=== PATIENT | female | born 1970 | race Two or more races ===

== ENCOUNTER 2022-05-03 08:32 | Emergency (ER) | payer MEDICAID ==
[~2022-05-03] VITALS: Ht 154.9 cm; Wt 61.4 kg
[~2022-05-03 08:32] MED LIST: AZIT500T66 PO; GUAISYP6 PO
[2022-05-03 08:51] VITALS: BP 134/85
[2022-05-03 09:33] LABS: Urine Bacteria NONE SEEN /hpf (None Seen); Urine Blood Negative /uL (Negative); Urine Specific Gravity 1.005 (1.001-1.035); Urine WBC <1 /hpf (0 - 5)
[2022-05-03 09:39] LABS: Basophils # (auto) 0 10 ^3/uL (0-0.2); Basophils % (auto) 1.1 % (0.0-2.0); Eosinophils # (auto) 0.2 10 ^3/uL (0-0.8); Eosinophils % (auto) 4.1 % (0.0-7.0); Hematocrit 45.6 % (36.0-46.0); Hemoglobin 15.5 g/dL (12.2-16.2); Lymphocytes # (auto) 1.6 10 ^3/uL (0.4-5.4); Mean Corpuscular Hemoglobin 30.3 pg (28.0-32.0); Mean Corpuscular Volume 89.1 fL (80.0-100.0); Monocytes # (auto) 0.3 10 ^3/uL (0-1.3); Monocytes % (auto) 6.2 % (0.0-12.0); Neutrophils # (auto) 2.4 10 ^3/uL (1.6-8.6); Neutrophils % (auto) 52.6 % (37.0-80.0); Red Blood Cells 5.12 10^6/uL (4.0-5.20); Red Cell Distribution Width 14.3 % (11.8-14.3); White Blood Cell 4.5 10^3/uL (4.4-10.8)
[2022-05-03 09:55] LABS: Albumin 4.3 g/dL (3.4-5.0); Calcium 9.4 mg/dL (8.5-10.1); Potassium 4.2 mmol/L (3.5-5.1)
[2022-05-03 09:59] LABS: BUN/Creatinine Ratio 15.9; Bilirubin, Total 0.4 mg/dL (0.2-1.0); Total Protein 8.3 g/dL (6.4-8.2)
[2022-05-03] MEDS ORDERED: IBU600T PO (11:00)
== END 2022-05-03 11:09 | disposition home or self-care (01) ==
LOC: ER 08:32
DX: R07.89 Other chest pain (principal); R09.1 Pleurisy; J45.909 Unspecified asthma, uncomplicated
CPT/HCPCS: 36415; 71045; 80053; 81001; 84484; 85025; 85379; 93005

== ENCOUNTER 2023-04-28 10:11 | Emergency (ER) | payer MEDICAID ==
[~2023-04-28] VITALS: Ht 162.6 cm; Wt 64.3 kg
[~2023-04-28 10:11] MED LIST changes: +IBU600T PO
[2023-04-28 11:13] VITALS: BP 126/72; PULSE 75; RESP 17; TEMP 98.3; O2SAT 97
[2023-04-28] MEDS ORDERED: PROCHLORPERAZINE EDISYLATE 5 MG/ML 2ML VIAL IM ONE (11:45)
[2023-04-28] MEDS ORDERED: HYDROcodone-ACET 5/325MG TAB PO ONE (11:45)
[2023-04-28] MEDS ORDERED: KETOROLAC TROMETH 60MG/2ML VIAL IM ONE (11:45)
[2023-04-28] MEDS ORDERED: IBUP1TAB5 PO (11:47)
[2023-04-28] MEDS ORDERED: FLUT1SPR5 (11:47)
[2023-04-28] MEDS ORDERED: AUG875T PO (11:47)
[2023-04-28] MEDS ORDERED: PRED20TA2 PO (11:47)
[2023-04-28] MEDS ORDERED: ZOFR4T PO (11:47)
== END 2023-04-28 11:42 | disposition home or self-care (01) ==
LOC: ER 10:11
DX: J01.90 Acute sinusitis, unspecified (principal); R51.9 Headache, unspecified; J45.909 Unspecified asthma, uncomplicated
CPT/HCPCS: 70450; 96372; 99285; J0780; J1885

== ENCOUNTER 2023-05-02 08:48 | Inpatient (IN) | payer MEDICAID ==
[~2023-05-02] VITALS: Ht 162.6 cm; Wt 64.0 kg
[~2023-05-02 08:48] MED LIST changes: +AUG875T PO; +FLUT1SPR5; +IBUP1TAB5 PO; +PRED20TA2 PO; +ZOFR4T PO
[2023-05-02 09:47] LABS: Urine Bacteria NONE SEEN /hpf (None Seen); Urine Blood Negative /uL (Negative); Urine Clarity HAZY (Clear); Urine Color Yellow (Yellow); Urine Mucus FEW (None Seen); Urine Protein, UAD TRACE (Negative); Urine Specific Gravity 1.023 (1.001-1.035); Urine WBC 5 /hpf (0 - 5); Urine pH 6.5 (5.0-8.0)
[2023-05-02 10:10] LABS: Basophils # (auto) 0.1 10 ^3/uL (0-0.2); Basophils % (auto) 0.8 % (0.0-2.0); Eosinophils # (auto) 0.1 10 ^3/uL (0-0.8); Eosinophils % (auto) 1.3 % (0.0-7.0); Hematocrit 45.6 % (36.0-46.0); Hemoglobin 15.3 g/dL (12.2-16.2); Lymphocytes # (auto) 2.5 10 ^3/uL (0.4-5.4); Lymphocytes % (auto) 37.5 % (10.0-50.0); Mean Corpuscular Hemoglobin 30.4 pg (28.0-32.0); Mean Corpuscular Hgb Conc. 33.6 g/dL (32.0-36.0); Mean Corpuscular Volume 90.4 fL (80.0-100.0); Monocytes # (auto) 0.6 10 ^3/uL (0-1.3); Monocytes % (auto) 8.2 % (0.0-12.0); Neutrophils # (auto) 3.5 10 ^3/uL (1.6-8.6); Neutrophils % (auto) 52.2 % (37.0-80.0); Nucleated Red Blood Cells % 0.1 %; Red Blood Cells 5.04 10^6/uL (4.0-5.20); Red Cell Distribution Width 13.6 % (11.8-14.3); White Blood Cell 6.8 10^3/uL (4.4-10.8)
[2023-05-02 10:32] LABS: Alanine Aminotransferase 17 U/L (7-40); Albumin 5.1 g/dL (3.2-4.8); Alkaline Phosphatase 95 U/L (46-116); Anion Gap 7 (5-15); Aspartate Aminotransferase 19 U/L (13-40); Bilirubin, Total 0.6 mg/dL (0.2-1.0); Blood Urea Nitrogen 9 mg/dL (9-23); Calcium 10.1 mg/dL (8.7-10.4); Carbon Dioxide 27 mmol/L (20-30); Chloride 106 mmol/L (98-107); Glucose 94 mg/dL (74-106); Lipase 92 U/L (12-53); Potassium 3.9 mmol/L (3.5-5.1); Sodium 140 mmol/L (136-145); Total Protein 8.5 g/dL (5.7-8.2)
[2023-05-02] MEDS ORDERED: metroNIDAZOLE 500MG/100ML 100 ML IV ONE (11:15)
[2023-05-02] MEDS ORDERED: cefTRIAXone 1GM/50ML D5W 50 ML IV ONE (11:15)
[2023-05-02] MEDS ORDERED: NITROGLYCERIN 0.4 MG SL TAB SL PRN (15:45)
[2023-05-02] MEDS ORDERED: ONDANSETRON HCL 4 MG/2 ML VIAL IV PRN (15:45)
[2023-05-02] MEDS ORDERED: MORPHINE SULFATE INJ 2 MG/ml SYRG IV PRN (15:45)
[2023-05-02] MEDS ORDERED: DOCUSATE SOD 100 MG CAP PO PRN (15:45)
[2023-05-02] MEDS ORDERED: PSEUDOEPHEDRINE HCL 30 MG TAB PO ONE (15:45)
[2023-05-02] MEDS ORDERED: HYDROcodone-ACET 5/325MG TAB PO PRN (15:45)
[2023-05-02] MEDS ORDERED: AZITHROMYCIN 500MG/ 250ML 250 ML IV ONE (16:00)
[2023-05-02] MEDS: FLUTICASONE PROP NASAL SPR 0.05 % (50MCG) 16GM EACHNOSTRI SCH ×2 (19:19→22:00)
[2023-05-03] MEDS: FAMOTIDINE (10MG/ML) 2ML VL IV SCH ×2 (00:30→10:07)
[2023-05-03 02:00] VITALS: BP 115/68; PULSE 64; RESP 17; TEMP 97.7; O2SAT 100
[2023-05-03] MEDS ORDERED: LORA-622 PO (02:29)
[2023-05-03 03:06] LABS: Urine Bacteria FEW /hpf (None Seen); Urine Blood Negative /uL (Negative); Urine Clarity Clear (Clear); Urine Color Colorless (Yellow); Urine Protein, UAD Negative (Negative); Urine Specific Gravity 1.012 (1.001-1.035); Urine Urobilinogen Normal (Negative); Urine WBC <1 /hpf (0 - 5)
[2023-05-03 05:00] VITALS: BP 107/66; PULSE 59; RESP 17; TEMP 97.9; O2SAT 98
[2023-05-03 06:38] LABS: Basophils # (auto) 0 10 ^3/uL (0-0.2); Basophils % (auto) 0.7 % (0.0-2.0); Eosinophils # (auto) 0.1 10 ^3/uL (0-0.8); Eosinophils % (auto) 1.9 % (0.0-7.0); Hematocrit 42.1 % (36.0-46.0); Hemoglobin 14.3 g/dL (12.2-16.2); Lymphocytes # (auto) 2.4 10 ^3/uL (0.4-5.4); Lymphocytes % (auto) 35.9 % (10.0-50.0); Mean Corpuscular Hemoglobin 30.4 pg (28.0-32.0); Mean Corpuscular Volume 89.4 fL (80.0-100.0); Monocytes # (auto) 0.5 10 ^3/uL (0-1.3); Monocytes % (auto) 7.2 % (0.0-12.0); Neutrophils # (auto) 3.6 10 ^3/uL (1.6-8.6); Neutrophils % (auto) 54.3 % (37.0-80.0); Nucleated Red Blood Cells % 0.1 %; Red Blood Cells 4.71 10^6/uL (4.0-5.20); Red Cell Distribution Width 13.6 % (11.8-14.3); White Blood Cell 6.6 10^3/uL (4.4-10.8)
[2023-05-03 06:46] LABS: Alanine Aminotransferase 15 U/L (7-40); Albumin 4.4 g/dL (3.2-4.8); Alkaline Phosphatase 74 U/L (46-116); Anion Gap 7 (5-15); Aspartate Aminotransferase 15 U/L (13-40); BUN/Creatinine Ratio 14.5 (10.0-20.0); Bilirubin, Total 0.6 mg/dL (0.2-1.0); Blood Urea Nitrogen 12 mg/dL (9-23); Calcium 9.4 mg/dL (8.5-10.1); Carbon Dioxide 26 mmol/L (20-30); Chloride 108 mmol/L (98-107); Glucose 78 mg/dL (74-106); Potassium 4.2 mmol/L (3.5-5.1); Sodium 141 mmol/L (136-145); Total Protein 7.2 g/dL (5.7-8.2)
[2023-05-03] MEDS: ACETAMINOPHEN 325 MG TAB PO PRN ×2 (06:52→14:02)
[2023-05-03 08:00] VITALS: PULSE 66; RESP 17; O2SAT 99
[2023-05-03 09:00] VITALS: BP 109/64; PULSE 66; RESP 17; TEMP 98.2; O2SAT 99
[2023-05-03] MEDS ORDERED: ENOXAPARIN SOD 40 MG/0.4 ML SYRINGE SC SCH (10:00)
[2023-05-03] MEDS ORDERED: AZITHROMYCIN 500MG/ 250ML 250 ML IV SCH (10:00)
[2023-05-03] MEDS: FLUTICASONE PROP NASAL SPR 0.05 % (50MCG) 16GM EACHNOSTRI SCH (10:07)
[2023-05-03 13:00] VITALS: BP 114/73; PULSE 74; RESP 16; TEMP 98.7; O2SAT 98
[2023-05-03 14:24] VITALS: BP 114/73; PULSE 74; RESP 16; TEMP 98.7; O2SAT 98
[2023-05-05 10:42] LABS: Hepatitis B Surface Antigen Negative (Negative)
[2023-05-05 11:04] LABS: Hepatitis C Antibody Negative (Negative)
== END 2023-05-03 14:47 | disposition home or self-care (01) | DRG 54 ==
LOC: ER 08:48 → OVERFLOW 15:45 → EAST 22:15
PROVIDERS: ADMIT Nurse Practitioner; ATTEND Nurse Practitioner
DX: G43.909 Migraine, unspecified, not intractable, without status migrainosus (principal); B34.9 Viral infection, unspecified; J45.909 Unspecified asthma, uncomplicated; N39.0 Urinary tract infection, site not specified; Z80.3 Family history of malignant neoplasm of breast
CPT/HCPCS: 36415; 70450; 74176; 80053; 81001; 83690; 85025; 86803; 87340; G0378; J0696; J3490

== ENCOUNTER 2025-05-17 10:47 | Emergency (ER) | payer MEDICAID ==
[~2025-05-17] VITALS: Ht 162.6 cm; Wt 55.1 kg
[~2025-05-17 10:47] MED LIST changes: +LORA-622 PO
[2025-05-17] MEDS: LIDOCAINE 5% TOPICAL PATCH TOP ONE (11:41)
[2025-05-17] MEDS: ACETAMINOPHEN 325 MG TAB PO ONE (11:42)
[2025-05-17] MEDS: KETOROLAC TROMETH 30 MG/ML 1ML VIAL IM ONE (11:43)
--- NOTE | 2025-05-17 12:01 | ED.PDOC ---
History of Present Illness HPI Comments 54 yo F w/ no PMH presenting for evaluation of right-sided body pain after the patient had a ground level fall. Patient states that she was walking when she tripped, landing onto her right side. Had no preceding presyncopal symptoms. Reporting pain mostly along the right lateral rib area and the right foot. Also had some abrasions to the right forearm and has some right shoulder pain, however, is able to range her shoulder. Chief Complaint: Fall Injury Time Seen by MD: 10:51 Primary Care Provider: unknown Allergies: Coded Allergies: NO KNOWN ALLERGIES (Unverified , 03/12/22) Home Meds Active Scripts Prednisone (Prednisone) 20 Mg Tab, 1 TAB PO DAILY for 5 Days, #5 TAB with food Prov:PAZ SERRANO NP 04/28/23 Fluticasone Propionate (Nasal) (Flonase Allergy Relief) 50 Mcg/Act Spr, 1 INH NA BID, #1 SPRAY Prov:PAZ SERRANO NP 04/28/23 Ibuprofen Micronized (Ibuprofen) 600 Mg Tab, 1 TAB PO Q6HR, #20 TAB As needed for pain Prov:PAZ SERRANO NP 04/28/23 Ondansetron Odt 4MG Tab (ZOFRAN PO) 4 Mg Tb, 1 TAB PO Q8HR, #20 TAB ODT TAB-DISSOLVE IN MOUTH, THEN SWALLOW as needed for nausea vomiting Prov:PAZ SERRANO NP 04/28/23 Amoxicillin & Pot Clavulanate (AUGMENTIN TABLET) 875 Mg Tb, 1 TAB PO BID for 10 Days, #20 TAB Prov:ZACHROSSIMAXIMILIANO Kim NP 04/28/23 Ibuprofen Micronized (MOTRIN TABLET) 600 Mg Tb, 600 MG PO TID PRN for 7 Days, #21 TAB *Black box warning-NSAIDS can increase risk of [place] & hypertension, GI irritation, ulceration, bleed, perferation. Do not use post cardiac surgery. Use short duration/lowest effective dose. Prov:ARON MAE MD 05/03/22 Azithromycin (Azithromycin) 500 Mg Tab, 1 TAB PO DAILY, #5 TAB Prov:CARMEL AGUILAR NP 03/14/22 Reported Medications Loratadine (Claritin) 10 Mg Tab, 1 TAB PO DAILY, #30 TAB 5 Refills 05/03/23 Guaifenesin-Codeine (Guaifenesin Ac) Ac Syp, 5 ML PO Q4HR, #240 ML 03/14/22 Mode of Arrival: Ambulatory Past Medical History PAST MEDICAL HISTORY: Asthma Surgical History: Denies all surgeries ACCOUNTS RECEIVABLE EXECUTIVE History: No Pertinent ACCOUNTS RECEIVABLE EXECUTIVE History Family History Family History: Unknown Social History Smoker: Non-Smoker Alcohol: Denies ETOH Use Drugs: Denies Drug Use Lives In: Home Constitutional: denies: chills, diaphoresis, fatigue, fever, malaise, sweats, weakness, others EENTM: denies: blurred vision, double vision, ear bleeding, ear discharge, ear drainage, ear pain, ear ringing, eye pain, eye redness, hearing loss, mouth pain, mouth swelling, nasal discharge, nose bleeding, nose congestion, nose pain, photophobia, tearing, throat pain, throat swelling, voice changes, others Respiratory: denies: cough, hemoptysis, orthopnea, SOB at rest, shortness of breath, SOB with excertion, stridor, wheezing, others Cardiovascular: denies: chest pain, dizzy spells, diaphoresis, Dyspnea on exertion, edema, irregular heart beat, left arm pain, lightheadedness, palpitations, PND, syncope, others Gastrointestinal: denies: abdomen distended, abdominal pain, blood streaked bowels, constipated, diarrhea, dysphagia, difficulty swallowing, hematemesis, melena, nausea, poor appetite, poor fluid intake, rectal bleeding, rectal pain, vomiting, others Genitourinary: denies: abnormal vagina bleeding, burning, dyspareunia, dysuria, flank pain, frequency, hematuria, incontinence, pain, , vagina discharge, urgency, others Neurological: denies: dizziness, fainting, headache, left sided numbness, left sided weakness, numbness, paresthesia, pre-existing deficit, right sided numbness, right sided weakness, seizure, speech problems, tingling, tremors, weakness, others Musculoskeletal: reports: muscle pain; denies: back pain, gout, joint pain, joint swelling, muscle stiffness, neck pain, others Integumetry: denies: bruises, change in color, change in hair/nails, dryness, laceration, lesions, lumps, rash, wounds, others Allergic/Immunocompromised: denies: Difficulty Healing, Frequent Infections, Hives, Itching, others Hematologic/Lymphatic: denies: anemia, blood clots, easy bleeding, easy bruising, swollen glands, others Endocrine: denies: excessive hunger, excessive sweating, excessive thirst, excessive urination, flushing, intolerance to cold, intolerance to heat, unexplained weight gain, unexplained weight loss, others Psychiatric: denies: anxiety, bipolar disorder, depression, hopeless, panic disorder, schizophrenia, sleepless, suicidal, others All Other Systems: Reviewed and Negative Physical Exam General Appearance: Normal HEENT: Normal ENT Inspection, Pharynx Normal Neck: Non-Tender Respiratory: No Accessory Muscle Use, No Respiratory Distress, Normal Breath Sounds Cardiovascular: No Edema, Normal Peripheral Pulses, Regular Rate/Rhythm Breast Exam: Deferred Gastrointestinal: Non Tender, Normal Bowel Sounds, Soft Genitalia: Deferred Pelvic: Deferred Rectal: Deferred Extremities: Tender (Right Foot: +dorsal mid foot ecchymosis, no obvious bony deformity; ) Neurologic: Alert, No Motor Deficits, No Sensory Deficits Cerebellar Function: Normal Reflexes: Normal Skin: Bruises Lymphatic: No Adenopathy Was a procedure done? Was a procedure done?: No Differential Dx Considerations may include: Muscular strain vs rib contusion vs rib fracture vs right foot fracture vs right foot ecchymosis X-Ray, Labs, Meds, VS Vital Signs Date Time Temp Pulse Resp B/P (MAP) Pulse Ox O2 Delivery O2 Flow Rate FiO2 05/17/25 11:42 98.0 05/17/25 11:40 98.0 83 16 102/75 (84) 98 98.0 05/17/25 11:40 83 16 98 Room Air 05/17/25 10:50 98.0 99 19 125/84 98 98.0 Current Medications Medications (Trade) Dose Ordered Sig/Ashlee Route Start Time Stop Time Status Last Admin Ketorolac Tromethamine (Toradol Injection) 30 mg ONCE ONCE IM 05/17/25 11:15 05/17/25 11:16 DC 05/17/25 11:43 Acetaminophen (Tylenol Tablet) 650 mg ONCE ONCE PO 05/17/25 11:15 05/17/25 11:16 DC 05/17/25 11:42 Lidocaine (Lidoderm 5% Topical Patch) 1 patch ONCE ONCE TOP 05/17/25 11:15 05/17/25 11:16 DC 05/17/25 11:41 Time of 1ST Reevaluation: 12:43 Reevaluation 1ST: Improved Patient Education/Counseling: Diagnosis, Treatment, Need For Follow Up Family Education/Counseling: No Family Present SEPSIS Sepsis Screen Date sepsis recognized/suspect: May 17, 2025 Time Sepsis recognized/suspect: 1053 Recent Procedure: No On Antibiotic Therapy: No Respiratory Rate >20: No Heart Rate >90: No Temp<36 C (96.8 F) or >38.3 C: No SBP <90 or MAP <65 mmHG: No New Acute Mental Status Change: No Is the patient on CPAP, BIPAP,: No Physician Orders Chest Xray 1 View (05/17/25 11:07) R Foot 3 View Xray (05/17/25 11:07) R Rib Xray (05/17/25 11:07) Vital Signs Date Time Temp Pulse Resp B/P (MAP) Pulse Ox O2 Delivery O2 Flow Rate FiO2 05/17/25 11:42 98.0 05/17/25 11:40 98.0 83 16 102/75 (84) 98 98.0 05/17/25 11:40 83 16 98 Room Air 05/17/25 10:50 98.0 99 19 125/84 98 98.0 Medications Medications Dose Ordered Sig/Ashlee Route Start Time Stop Time Status Last Admin Dose Admin Acetaminophen 650 mg ONCE ONCE PO 05/17/25 11:15 05/17/25 11:16 DC 05/17/25 11:42 Ketorolac Tromethamine 30 mg ONCE ONCE IM 05/17/25 11:15 05/17/25 11:16 DC 05/17/25 11:43 Lidocaine 1 patch ONCE ONCE TOP 05/17/25 11:15 05/17/25 11:16 DC 05/17/25 11:41 Departure 1 Departure Time of Disposition: 12:45 (Year old female presenting for evaluation of right- sided body pain after she had a ground level fall yesterday. Patient reporting right shoulder pain, however, has no deformity of the shoulder, full range of motion, does not require any x-rays of the right shoulder humerus as I do not suspect underlying fractures. Patient with superficial abrasions along the right forearm, however, no deformities, does not require any x-rays of the right forearm. Reporting right lateral rib discomfort and midsternal chest wall discomfort. No obvious step-off, crepitus. X-ray of the chest with right rib views was performed which is negative for any underlying rib fractures. Patient also with some bruising along the top of the right foot, x-ray of the right foot was performed which is negative for any underlying fractures. Patient is ambulatory here. Does not require any labs given the mechanical fall yesterday. Was given IM Toradol, oral Tylenol and a topical lidocaine patch for analgesia here. Feeling improved after interventions. Stable for discharge further outpatient management. Advised to take NSAIDs as needed for discomfort.) Impression: Primary Impression: Traumatic ecchymosis of right foot Additional Impressions: Rib pain on right side Abrasion of right forearm Right shoulder pain Ground-level fall Disposition: HOME / SELF CARE / HOMELESS Condition: Stable Additional Instructions: You were evaluated today after a ground level fall. X-rays of your chest and right ribs were performed which are negative for any underlying rib fractures. X-rays of the right foot were also performed which are negative for any underlying fractures. You will likely having muscular pain over the upcoming days. Please take Tylenol and/or ibuprofen every 6 hours as needed for discomfort. Discharged With: Self Critical Care Note Critical Care Time?: No Stability Stability form required: KALEB Pak MD May 17, 2025 12:01
--- NOTE | 2025-05-17 12:29 | DVH ---
CLINICAL INDICATION: right foot pain after fall TECHNIQUE: 3 radiographic views of the right feet were obtained. Comparison: None FINDINGS/IMPRESSION: There is no evidence of acute fracture or dislocation. The visualized joint space is well maintained. The alignment is anatomical. There is no radiopaque foreign body.
--- NOTE | 2025-05-17 12:29 | DVH ---
EXAMINATION: XY R RIB XRAY INDICATION: right rib pain after fall COMPARISON: CHEST PORTABLE on DOS: 05/03/22, CXRP on DOS: 05/03/22, CHEST XRAY 1 VIEW on DOS: 03/14/22, CHEST WITHOUT CONTRAST on DOS: 03/12/22, CXR1 on DOS: 03/12/22 TECHNIQUE: Frontal view of the chest and 4 views of the right ribs history FINDINGS: No focal consolidation, pleural effusion or significant pneumothorax. Normal cardiomediastinal silhouette. No displaced right rib fracture. IMPRESSION: No acute cardiopulmonary disease. No displaced right rib fracture.
[2025-05-17 12:59] VITALS: BP 106/75; PULSE 81; RESP 16; TEMP 98; O2SAT 98
== END 2025-05-17 13:37 | disposition home or self-care (01) ==
LOC: ER 10:47
DX: S90.31XA Contusion of right foot, initial encounter (principal); S50.811A Abrasion of right forearm, initial encounter; R07.89 Other chest pain; W01.0XXA Fall on same level from slipping, tripping and stumbling without subsequent striking against object, initial encounter; Y93.01 Activity, walking, marching and hiking; Y92.89 Other specified places as the place of occurrence of the external cause; Y99.8 Other external cause status
CPT/HCPCS: 71101; 73630; 96372; 99284; J1885